=== PATIENT | female | born 1955 | race American Indian/Alaskan Native ===

== ENCOUNTER 2016-04-13 09:15 | Outpatient (CLI) | payer BC ==
--- NOTE | 2016-04-13 12:16 | Cat Scan Report ---
CT ABDOMEN AND PELVIS WITHOUT CONTRAST: INDICATION: New abdominal mass. COMPARISON: None similar. FINDINGS: Noncontrast abdomen and pelvis CT performed. LUNG BASES: Top normal heart size. Right hemidiaphragm slightly elevated. Nonspecific distal esophageal wall thickening, not excluded for gastroesophageal reflux and/or hiatal hernia, amongst others. ABDOMEN: Please note that sensitivity to detect small visceral lesions is limited due to the absence of intravenous or oral contrast. Diffuse fatty hepatic infiltration with a nonspecific, though a focal 9 mm nodular area of right hepatic presumed fatty sparing as on axial series 2, image 58. Right hepatic lobe approximately 18.5 cm in midclavicular length. Otherwise, grossly unremarkable unenhanced liver, spleen, gallbladder, pancreas, adrenals, kidneys, non-aneurysmal abdominal aorta with few atherosclerotic calcifications and IVC. No ascites or size significant adenopathy. Nonopacified GI tract evaluation limited, though grossly nonobstructive. Gastric lap band noted with connector tubing leading to the subcutaneous port in the left lower quadrant near the umbilicus. Normal appendix in the midline. Mild stool throughout colon. Colonic diverticulosis, greatest along the descending colon. PELVIS: Urinary bladder, uterus, adnexa/ovaries and the rectosigmoid demonstrate normal CT appearance. Mild proximal sigmoid diverticulosis. Few pelvic phleboliths. No free fluid or definite size significant adenopathy. Multilevel spinal degenerative spurring, greatest lower thoracic. Bilateral hips and SI joint degenerative changes as well. CONCLUSION: No acute CT abnormality with various incidental findings as fatty enlarged liver, diverticulosis, gastric lap band and various bony degenerative changes noted, amongst others, as detailed above. Please correlate. Thank you for the opportunity to participate in this patient's care.
== END 2016-04-13 09:16 | disposition home or self-care (01) ==
LOC: CT 09:15
PROVIDERS: ATTEND Internal Medicine
DX: E05.90 Thyrotoxicosis, unspecified without thyrotoxic crisis or storm (principal); E78.5 Hyperlipidemia, unspecified; Q79.1 Other congenital malformations of diaphragm; K21.9 Gastro-esophageal reflux disease without esophagitis; K44.9 Diaphragmatic hernia without obstruction or gangrene; I70.0 Atherosclerosis of aorta; K57.30 Diverticulosis of large intestine without perforation or abscess without bleeding; K76.0 Fatty (change of) liver, not elsewhere classified; I87.8 Other specified disorders of veins; K76.89 Other specified diseases of liver
CPT/HCPCS: 36415; 74176; 80061; 84439; 84443; 84481

== ENCOUNTER 2016-05-09 14:26 | Outpatient (CLI) | payer BC ==
--- NOTE | 2016-05-09 15:04 | Mammography Report ---
BONE DENSITY STUDY: DEFINITIONS: BMD = Bone Mineral Density T-score = BMD related to mean peak bone mass of young adult (mean expressed in Standard Deviation) Z-score = Age matched BMD expressed in SD World Health Organization (WHO) Diagnostic Criteria Normal T-score > -1 SD Osteopenia T-score between -1 and -2.4 SD Osteoporosis T-score -2.5 SD or below FINDINGS: The weighted average BMD of lumbar spine L1-L4 is 1.033 with a T-score of -0.1. The weighted average BMD of hip is 0.986 with a T-score of 0.4. IMPRESSION: The patient's T-score is diagnostic for normal bone density and low relative risk for fracture. NOTE: BMD is not the only risk factor for fracture; also consider factors such as the patient's age, risk of falling, previous osteoporotic fracture, family history of osteoporotic fractures, current smoker, and low body weight. Mcginnis's triangle is a region of interest in femur, predominantly of trabecular bone. It is not a true anatomic site, and [facility] does not recommend its use clinically.
== END 2016-05-09 14:27 | disposition home or self-care (01) ==
LOC: MAMMO 14:26
PROVIDERS: ATTEND Internal Medicine
DX: N95.1 Menopausal and female climacteric states (principal); R29.890 Loss of height
CPT/HCPCS: 77080

== ENCOUNTER 2016-07-18 09:32 | Outpatient (CLI) | payer BC ==
[2016-07-18 10:11] LABS: Alanine Aminotransferase 24 units/L (7-56); Albumin 4.1 g/dL (3.9-5); Albumin/Globulin Ratio 1.2 %; Alkaline Phosphatase 75 units/L (35-129); Anion Gap 15 mmol/L; BUN/Creatinine Ratio 16.36; Bilirubin,Total 0.5 mg/dL (0.1-1.2); Blood Urea Nitrogen 18 mg/dL (7-17); Calcium 9.5 mg/dL (8.4-10.2); Carbon Dioxide 28 mmol/L (22-30); Chloride 102.8 mmol/L (98-107); Glucose 110 mg/dL (65-100); Potassium 4.1 mmol/L (3.6-5.0); Sodium 142 mmol/L (137-145); Total Protein 7.5 g/dL (6.3-8.2)
[2016-07-18 10:39] LABS: Hematocrit 49.6 % (30.3-42.9); Mean Corpuscular HGB Conc 32 % (30-34); Mean Corpuscular Hemoglobin 31 pg (28-32); Mean Corpuscular Volume 96 fl (79-97); Platelet Count 238 K/mm3 (140-440); Red Blood Count 5.19 M/mm3 (3.65-5.03); Red Cell Distribution Width 14.3 % (13.2-15.2); White Blood Count 5.5 K/mm3 (4.5-11.0)
== END 2016-07-18 09:33 | disposition home or self-care (01) ==
LOC: LAB 09:32
PROVIDERS: ATTEND Specialist
DX: E03.9 Hypothyroidism, unspecified (principal)
CPT/HCPCS: 36415; 80053; 84439; 84443; 84480; 85027

== ENCOUNTER 2021-04-01 14:48 | Outpatient (CLI) | payer MEDICARE ==
--- NOTE | 2021-04-01 17:31 | Mammography Report ---
DIGITAL SCREENING MAMMOGRAM WITH CAD, 04/01/2021 CLINICAL INFORMATION / INDICATION: Routine screening mammography. SCREENING MAMMOGRAM TECHNIQUE: Digital bilateral 2D mammography was obtained in the craniocaudal and mediolateral obliqu e projections. This examination was interpreted with the benefit of Computer-Aided Detection analysis . COMPARISON: 02/22/2016. FINDINGS: Breast Density: There are scattered areas of fibroglandular density. No dominant mass, suspicious calcifications, or architectural distortion in either breast. IMPRESSION: No mammographic evidence of malignancy. Follow up recommendation: Routine yearly BI-RADS Category 1: NEGATIVE A "normal" or negative report should not discourage follow up or biopsy of a clinically significant f inding. A written summary of these findings will be mailed to the patient. The patient will be entered into a mammography reporting system which will generate a reminder letter for the patient's next appointmen t at the appropriate interval. The [employer] recommends yearly mammograms starting at age 40 and continuing as l coni as a woman is in good health. Breast MRI is recommended for women with an approximate 20-25% or greater lifetime risk of breast cancer, including women with a strong family history of breast or ova chetan cancer or who have been treated for Hodgkin's disease. Signer Name: Jason Grissom MD Signed: 04/01/2021 5:27 PM Workstation Name: [id number]
== END 2021-04-01 14:49 | disposition home or self-care (01) ==
LOC: MAMMO 14:48
PROVIDERS: ATTEND Internal Medicine
DX: Z12.31 Encounter for screening mammogram for malignant neoplasm of breast (principal)
CPT/HCPCS: 77067

== ENCOUNTER 2021-06-04 12:57 | Outpatient (CLI) | payer MEDICARE ==
--- NOTE | 2021-06-04 15:41 | Fluoroscopy Report ---
BARIUM SWALLOW Indication: R13.10 DYSPHAGIA. Technique: Single and double contrast barium technique utilized to evaluate the esophagus. FINDINGS: To begin the exam, swallowing was evaluated in the lateral position under direct fluorosco py. Swallowing was normal. No mucosal irregularity, mass, mass effect, or critical stenosis. There were no abnormal tertiary c ontractions as seen with dysmotility. Occasional episodes of gastroesophageal reflux into the distal esophagus was witnessed. A lap band is identified which appears in good position in the left paraspinal region. There is no ev idence for slippage or erosion. There is easy passage of the contrast agent through the lap band ajay ce. There is normal filling of the gastric cavity and duodenum. No mucosal defect or obstruction. IMPRESSION: Unremarkable appearance of the lap band device. There is no evidence for obstruction or mucosal defect. There is easy passage of the contrast agent through the lap band. Occasional episodes of mild gastroesophageal reflux were witnessed. Fluoroscopic time: 3.3 minutes Number of fluoroscopic images: 33 Signer Name: Juve Vences Jr, MD Signed: 06/04/2021 3:36 PM Workstation Name: [id number]
== END 2021-06-04 12:58 | disposition home or self-care (01) ==
LOC: FLUORO 12:57
PROVIDERS: ATTEND Surgery
DX: K21.9 Gastro-esophageal reflux disease without esophagitis (principal); R13.10 Dysphagia, unspecified
CPT/HCPCS: 74220